=== PATIENT | male | born 1995 | race Caucasian/White ===

== ENCOUNTER 2018-01-27 13:53 | Emergency (ER) | payer SELFPAY ==
[~2018-01-27] VITALS: Ht 175.3 cm; Wt 60.0 kg
[2018-01-27 14:13] VITALS: BP 123/69; PULSE 82; RESP 18; TEMP 98.3; O2SAT 99
--- NOTE | 2018-01-27 15:04 | PD ---
HPI . Thumb injury Chief Complaint: Injury Time Seen by Provider: 14:47 Travel History International Travel<30 days: No Contact w/Intl Traveler<30days: No Traveled to known affect area: No History of Present Illness HPI This patient presents with chief complaint of a right thumb injury. He states that he was punching a punching bag yesterday and missed and inadvertently struck something hard with his right thumb. Since that time, he has developed increasing pain and swelling and now numbness of the tip of the thumb. The pain is rated 6/10. [facility] Social History Tobacco Use: No Allergies-Medications (Allergen,Severity, Reaction): Coded Allergies: No Known Allergies (Unverified , 01/27/18) Reported Meds & Prescriptions Reported Meds & Active Scripts Active No Active Prescriptions or Reported Medications Review of Systems Except as stated in HPI: all other systems reviewed are Neg Physical Exam Narrative GENERAL: Awake and alert and in no acute distress. SKIN: Warm and dry. HEAD: Normocephalic/atraumatic. EYES: Pupils are equal. Extraocular movements are intact. NECK: Normal range of motion. CARDIOVASCULAR: Regular rate and rhythm. RESPIRATORY: Nonlabored respirations. MUSCULOSKELETAL: He has some swelling and tenderness of the distal right thumb. There is no gross deformity. There is no subungual hematoma. NEUROLOGICAL: Nonfocal. PSYCHIATRIC: Appropriate mood and affect. Data Data Last Documented VS Vital Signs Date Time Temp Pulse Resp B/P (MAP) Pulse Ox O2 Delivery O2 Flow Rate FiO2 01/27/18 14:13 98.3 82 18 123/69 (87) 99 Orders Orders Finger ([id number]) (01/27/18 14:47) Acetamin-Hydrocod 325-5 Mg (Lexa 5-325 (01/27/18 15:45) Splint Or Brace Apply/Monitor (01/27/18 15:42) [facility] Medical Decision Making Medical Screen Exam Complete: Yes Emergency Medical Condition: Yes Differential Diagnosis Differential diagnosis of extremity trauma includes but is not limited to fracture, sprain or strain, dislocation, contusion Narrative Course This patient presents with an injury to the distal right thumb. He inadvertently struck something hard with it yesterday. He comes in today complaining with increasing pain and swelling and now numbness of the tip of the thumb. Exam shows some swelling but no deformity. No subungual hematoma. X-ray is pending. X-ray to my interpretation shows a nondisplaced buckle type fracture of the distal phalanx of the right thumb. The film will be splinted for protection. He will be given a prescription for Lexa. I will give him the phone number for the hand surgeon but this is probably going to heal fine with no intervention. Diagnosis Primary Impression: Fracture of thumb, right, closed Qualified Codes: S62.524A - Nondisplaced fracture of distal phalanx of right thumb, initial encounter for closed fracture Referrals: Michael Reed MD Med/Other Pt SpecificInfo: Prescription(s) given Scripts Hydrocodone-Acetaminophen (Lexa) 5 Mg-325 Mg Tab 1 TAB PO Q4H Y for PAIN, #12 TAB 0 Refills Prov: Clarisa Hayward MD 01/27/18 Disposition: 01 DISCHARGE HOME Condition: Stable Clarisa Hayward MD January 27, 2018 15:04
[2018-01-27] MEDS ORDERED: ACETAMINOPHEN/HYDROcodone 325 MG/5 MG TAB PO ONE (15:45)
[2018-01-27] MEDS ORDERED: NORC5TAB PO (15:45)
--- NOTE | 2018-01-27 15:56 | RADRPT ---
EXAM DATE/TIME: 01/27/2018 14:58 [facility] COMPARISON: No previous studies available for comparison. INDICATIONS : Pain from punching a wall. MEDICAL HISTORY : None. SURGICAL HISTORY : None. ENCOUNTER: Initial ACUITY: 1 day PAIN SCORE: 5/10 LOCATION: Right distal first digit., FINDINGS: Examination of the first digit of the right hand demonstrates no evidence of fracture or dislocation. No radiopaque foreign bodies are seen. The soft tissues are intact. CONCLUSION: 1. No acute fracture or dislocation. Mark Ayon MD on January 27, 2018 at 15:53 Board Certified Radiologist. This report was verified electronically.
== END 2018-01-27 16:05 | disposition home or self-care (01) ==
LOC: NEPD 13:53
DX: S62.524A Nondisplaced fracture of distal phalanx of right thumb, initial encounter for closed fracture (principal); W21.89XA Striking against or struck by other sports equipment, initial encounter
CPT/HCPCS: 73140; 99283